=== PATIENT | male | born 1985 | race African-American/Black ===

== ENCOUNTER → 2017-01-26 | Day surgery (SDC) | payer OTHER ==
[~2017-01-26] VITALS: Ht 170.2 cm; Wt 103.0 kg
[~2017-01-26] MED LIST: BUPIVACAINE MPF 0.5% 30 ML VIAL. ONE; DEXAMETHASONE SOD PHOS 20 MG/5 ML VIAL. ONE; HYDR-963 PO; HYDROcodone/APAP 10/325 1 TAB TABLET PO ONE; HYDROmorphone 2 MG/ML VIAL IV PRN; IV RINGERS,LACTATED 1000ML 1,000 ML IV SCH; KETOROLAC 60 MG/2 ML INJ FOR OR. ONE; LIDOCAINE 1% 1 ML SYRINGE. ID PRN; LIDOCAINE 1% 20 ML VIAL. ONE; LIDOCAINE 2% PF Vial for OR 5 ML VIAL. ONE; ONDANSETRON PF 4 MG/2 ML VIAL. IV PRN; ONDANSETRON PF 4 MG/2 ML VIAL. ONE; PROCHLORPERAZINE 10 MG/2 ML VIAL. IV PRN; PROPOFOL 40 ML IV ONE; SEVOFLURANE 61 TO 120 MINUTES. IH ONE; TRAM50TA PO; ePHEDrine PF IN SALINE 50 MG/5 ML DISP.SYRIN IV ONE; fentaNYL PF VIAL 100 MCG/2 ML VIAL ONE
--- NOTE | 2017-01-26 15:09 | DISCH ---
DISCHARGE INSTRUCTIONS Condition on Discharge Condition on Discharge: Stable Activity After Discharge Activity Instructions for Disc: Other, see below Bathing Instructions: Shower-keep dressing dry Weight Bearing Status after Di: Non weight bearing Diet after Discharge Diet after Discharge: Regular Wound Incision Care Wound/Incision Care: Ice to area for comfort, Keep wound elevated, Do not change dressing Contacting the after DC Call your doctor for: Concerns you may have Follow-Up Follow up with: Esperanza in 2wks PARISH LORD II, MD Jan 26, 2017 15:09
--- NOTE | 2017-01-26 15:10 | PDOC ---
BRIEF OPERATIVE NOTE Date: Jan 26, 2017 Pre-Op Diagnosis Displaced and malangulated closed L 3rd and 4th metacarpal shaft fxs Post-Op Diagnosis same Procedure Performed ORIF of above Surgeon Esperanza Hollingsworth Anesthesia Type: General, Local Blood Loss 10mL Complications none PARISH LORD II, MD Jan 26, 2017 15:10
[2017-01-26] MEDS: fentaNYL PF VIAL 100 MCG/2 ML VIAL IV PRN ×5 (17:13→18:07)
[2017-01-26] MEDS: MORPHINE SULFATE 2 MG/ML DISP.SYRIN. IV PRN ×4 (17:30→18:07)
[2017-01-26 18:25] VITALS: BP 135/76
--- NOTE | 2017-01-26 21:42 | OP ---
DATE OF SURGERY: 01/26/2017 SURGEON: Balbir Lord MD WARPMAN: Ivana Hollingsworth. ANESTHESIA: General plus local at the end. TOURNIQUET TIME: 78 minutes. ESTIMATED BLOOD LOSS: 10 mL. PREOPERATIVE DIAGNOSIS: Closed, displaced and malangulated left 3rd and 4th metacarpal fractures. POSTOPERATIVE DIAGNOSIS: Closed, displaced and malangulated left 3rd and 4th metacarpal fractures. PROCEDURES PERFORMED: 1. Open reduction and internal fixation of left third metacarpal shaft fracture 2. Open reduction internal fixation of left fourth metacarpal shaft fracture. COMPONENTS INSERTED: Sal[employer]on [employer]hew 2.4-mm T-plate for third and straight plate for fourth. COMPLICATIONS: None. REASON FOR PROCEDURE: The patient is a 32-year-old inmate, who suffered an injury to his left hand. I had seen and evaluated him in my outpatient orthopedic surgery clinic, and for details, please refer to the outpatient consult note. In short, he was really not able to move his fingers secondary to pain. He has a fracture line that was borderline based on my measurements, and because of the above, I elected to offer him surgery with the hopes that stabilization would lead to better rehabilitation. He agreed to proceed after we discussed the risks, benefits, and alternatives. DESCRIPTION OF PROCEDURE: The patient was greeted in the preoperative area by myself. Correct extremity was marked and verified. He was taken back to the operative suite and antibiotics were started en route. Once in the OR, he was transferred gently supine to the OR table and secured to the bed with all pressure points padded after successful induction of general anesthesia. We then proceeded to prep and drape after applying a nonsterile tourniquet to his left upper arm. We then conducted a standard preoperative timeout. I then palpated and marked surface anatomy and brought in C-arm to localize the third and fourth metacarpals and dayne a line for an incision between these two along the length of the metacarpal bones. After this, I exsanguinated the extremity with Esmarch and insufflated the tourniquet to 250 mmHg. I then incised the skin in accordance with my line and dissected the subcutaneous tissue with a combination of bipolar cautery, cauterized bleeders, and tenotomy scissors. I identified the third metacarpal fracture site and mobilized the extensor tendon lateral to this and then used a needle tip cautery to incise the periosteum overlying this followed by periosteal elevator to free up the soft tissue at the dorsal metacarpal in anticipation of my plate application. I then used a combination of a small rongeur and a dental pick to debride the fracture site. I used a [id number] clamp and longitudinal traction to facilitate fracture reduction, and after achieving fracture reduction, I was reasonably stable that I did not use any provisional fixation. I then sized and positioned my plate and placed two screws, one proximal and distal fracture sites to secure to the bone and repeated my x-rays, confirming good hardware position and fracture alignment and then proceeded to fill the screw holes. I then directed my attention to repeating the exposure using needle tip cautery over the dorsal surface of the third metacarpal followed by periosteal elevator. I then debrided the fracture site again as well and then, I used the same maneuver to facilitate reduction followed by confirming good reduction under AP, oblique, and lateral images. I then sized my plate - I chose a little bit different plate as I thought this accommodated as a bone gutter. After this, I proceeded to secure the plate to the bone proximal and distal to the fracture site, repeated my images and was happy with the hardware position and fracture reduction. I therefore proceeded to fill the holes proximal and distal to the fracture site. After this, I took my final images and was happy with the hardware position and fracture reduction. I then irrigated out the operative field, let the tourniquet down. There was some venous oozing, but overall the operative field was fairly dry. I then irrigated out the operative field with sterile normal saline. I then closed the deeper soft tissues over the plates and used inverted, interrupted 2-0 for the subcutaneous tissue followed by 2-0 nylon in mattress fashion for the skin. The arm was cleansed and dried. I then injected approximately 10 mL of local anesthetic mixture into the franklin-incisional area. After this, we placed Steri-Strips, Xeroform, sterile cast padding, and fashioned the SLAP-type splint for the patient. I carried this out to leave his IP joints free at his fingers to begin some gentle range of motion to help facilitate his recovery period. Prior to completion of wound closure, all counts were reported as correct x 2. No complications. The patient tolerated the surgery well. At the conclusion of surgery, he was awakened from anesthesia, transferred gently supine from the OR table to the recovery room cart and taken to PACU in stable and extubated condition. [facility]. He will follow up with me in 2 weeks, sooner should problems arise. BALBIR LORD MD DR: LOLLY/bijan JOB#: [id number] / [id number] TIFFANY
== END | disposition home or self-care (01) ==
LOC: SURG 12:13 → EEVIPCON 14:30
PROVIDERS: ATTEND Orthopaedic Surgery Sports Medicine
DX: S62.323A Displaced fracture of shaft of third metacarpal bone, left hand, initial encounter for closed fracture (principal); S62.325A Displaced fracture of shaft of fourth metacarpal bone, left hand, initial encounter for closed fracture; X58.XXXA Exposure to other specified factors, initial encounter; Y93.89 Activity, other specified; Y92.89 Other specified places as the place of occurrence of the external cause; Y99.9 Unspecified external cause status; Z86.69 Personal history of other diseases of the nervous system and sense organs; Z87.39 Personal history of other diseases of the musculoskeletal system and connective tissue
CPT/HCPCS: 26615; 76000; J0690; J0780; J1100; J1885; J2270; J2405; J2704; J3010; J3490; C1713; J7120